=== PATIENT | male | born 1980 | race Caucasian/White ===

== ENCOUNTER 2018-07-20 19:52 | Emergency (ER) | payer SELFPAY ==
[~2018-07-20] VITALS: Ht 193 cm; Wt 86.2 kg
[2018-07-20] MEDS ORDERED: Synthroid/Levo0.2 MG (20:02)
== END 2018-07-20 20:49 | disposition home or self-care (01) ==
LOC: ER 19:52
DX: S61.213A Laceration without foreign body of left middle finger without damage to nail, initial encounter (principal); Z23 Encounter for immunization; F17.200 Nicotine dependence, unspecified, uncomplicated; Z88.2 Allergy status to sulfonamides; Z88.1 Allergy status to other antibiotic agents; Z79.899 Other long term (current) drug therapy; W26.8XXA Contact with other sharp object(s), not elsewhere classified, initial encounter
CPT/HCPCS: 12001; 90471; 90714; 99282-25

== ENCOUNTER → 2021-12-19 | Outpatient (CLI) | payer OTHER ==
[~2021-12-19] MED LIST: Synthroid/Levo0.2 MG
== END | disposition home or self-care (01) ==
LOC: LAB SHORT 10:32
DX: R31.9 Hematuria, unspecified (principal)
CPT/HCPCS: 87086

== ENCOUNTER → 2021-12-28 | Outpatient (CLI) | payer OTHER ==
[2021-12-28 09:28] LABS: Source, Urine Clean Catch
[2021-12-28 09:45] LABS: Appearance, Urine Clear (Clear); Bilirubin, Urine Neg (Neg); Blood, Urine 1+ (Neg); Color, Urine Yellow (P-Yellow); Glucose Qualitative, Urine Neg (Normal); Ketones, Urine Neg (Neg); Leukocyte Esterase, Urine Neg (Neg); Nitrite, Urine Neg (Neg); Protein, Urine Neg (Neg); Urobilinogen, Urine NORM (Normal)
[2021-12-28 09:46] LABS: Bacteria Not Seen /hpf; Red Blood Cells, Urine Rare /hpf (0-2); Squamous Epithelial Cells Rare /hpf (Few); White Blood Cells, Urine Not Seen /hpf (0-5)
== END ==
LOC: LAB SHORT 09:24 → LAB 09:24
PROVIDERS: Physician Assistant
DX: R31.9 Hematuria, unspecified (principal)
CPT/HCPCS: 81001

== ENCOUNTER → 2024-12-30 | Outpatient (CLI) | payer OTHER ==
[2024-12-30 15:34] LABS: Source, Urine Clean Catch
[2024-12-30 17:30] LABS: Red Blood Cells, Urine 0-2 /hpf (0-2); White Blood Cells, Urine 0-2 /hpf (0-5)
[2024-12-30 17:31] LABS: Bacteria Rare /hpf; Squamous Epithelial Cells Not Seen /hpf (Few)
[2025-01-01 22:31] LABS: MYCOPLASMA GENITALIUM BY PCR Not Detected; MYCOPLASMA HOMINIS BY PCR Not Detected; UREAPLASMA MYCOPLASMA SOURCE Urine; UREAPLASMA PARVUM BY PCR Not Detected; UREAPLASMA UREALYTICUM BY PCR Not Detected
== END ==
LOC: LAB SHORT 14:45 → LAB 14:45
PROVIDERS: Family Medicine
DX: R35.0 Frequency of micturition (principal)
CPT/HCPCS: 81015; 87086; 87563; 87798

== ENCOUNTER → 2025-02-25 | Outpatient (CLI) | payer OTHER ==
[2025-02-25 10:33] LABS: Source, Urine Clean Catch
[2025-02-25 12:25] LABS: Red Blood Cells, Urine 0-2 /hpf (0-2); White Blood Cells, Urine Not Seen /hpf (0-5)
== END | disposition home or self-care (01) ==
LOC: LAB SHORT 10:31 → LAB 10:31
PROVIDERS: Family Medicine
DX: R31.29 Other microscopic hematuria (principal)
CPT/HCPCS: 81015